=== PATIENT | female | born 1950 | race Caucasian/White ===

== ENCOUNTER 2021-09-26 16:16 | Emergency (ER) | payer MEDICARE ==
[~2021-09-26] VITALS: Ht 167.6 cm; Wt 85.9 kg
[2021-09-26] MEDS ORDERED: FENO54TA7 PO (16:32)
[2021-09-26] MEDS ORDERED: METF-81 PO (16:32)
[2021-09-26] MEDS ORDERED: LEVO88TA4 PO (16:32)
[2021-09-26] MEDS ORDERED: VALS160T2 PO (16:32)
[2021-09-26] MEDS ORDERED: ESCI-8 PO (16:32)
[2021-09-26] MEDS ORDERED: FENO160T11 PO (16:33)
[2021-09-26] MEDS ORDERED: METF-1211 PO (16:33)
[2021-09-26] MEDS ORDERED: LIDOCAINE 1% 10 ML VIAL PERC ONE (18:00)
[2021-09-26] MEDS ORDERED: BUPIVACAINE HCL/PF 0.25% 10 ML VIAL PERC ONE (18:00)
[2021-09-26] MEDS ORDERED: POVIDONE-IODINE 10% 15 ML SOLUTION UD TP ONE (18:00)
[2021-09-26 19:05] VITALS: BP 116/84
== END 2021-09-26 19:57 | disposition home or self-care (01) ==
LOC: EMS 16:20
DX: S91.202A Unspecified open wound of left great toe with damage to nail, initial encounter (principal); E78.00 Pure hypercholesterolemia, unspecified; I10 Essential (primary) hypertension; E03.9 Hypothyroidism, unspecified; Z87.898 Personal history of other specified conditions; Z90.710 Acquired absence of both cervix and uterus; Z98.890 Other specified postprocedural states; Z91.018 Allergy to other foods; X58.XXXA Exposure to other specified factors, initial encounter; Y93.89 Activity, other specified; Y92.89 Other specified places as the place of occurrence of the external cause; Y99.8 Other external cause status
CPT/HCPCS: 11730; 73660; 99284; J3490 ×2